=== PATIENT | female | born 1950 | race Caucasian/White ===

== ENCOUNTER → 2019-03-18 | Outpatient (CLI) | payer MEDICARE, MEDICAID ==
[~2019-03-18] MED LIST: ARIP20TA5 PO; ASPI-515 PO; BACL-19 PO; DIAZ5TAB PO; DOCU-131 PO; DULO60CA7 PO; FAMO-79 PO; LEVO25TA2 PO; OXYB5TAB7 PO; QUET400T4 PO; SIMV20TA3 PO; SOLI10TA2 PO; TOPI50TA35 PO; TRAM-47 PO; TRAZ-137 PO; TROL85CR3 TP
== END | disposition home or self-care (01) ==
LOC: CFH 13:34
PROVIDERS: ATTEND Family Medicine
DX: M81.0 Age-related osteoporosis without current pathological fracture (principal); N64.4 Mastodynia
CPT/HCPCS: 76642; 77066; 77080; G0279

== ENCOUNTER → 2020-06-22 | Outpatient (CLI) | payer MEDICARE, MEDICAID ==
[~2020-06-22] MED LIST changes: +OXYB5TAB10 PO; -OXYB5TAB7 PO; +SIMV20TA19 PO; -SIMV20TA3 PO; -TRAZ-137 PO; +TRAZ-175 PO
== END | disposition home or self-care (01) ==
LOC: CFH 12:00
PROVIDERS: ATTEND Family Medicine
DX: M79.89 Other specified soft tissue disorders (principal)

== ENCOUNTER 2021-01-05 12:13 | Outpatient (CLI) | payer MEDICAID, MEDICARE ==
[~2021-01-05 12:13] MED LIST changes: -ASPI-515 PO; +ASPI-963 PO
== END 2021-01-05 23:59 | disposition home or self-care (01) ==
LOC: RAD 12:13
PROVIDERS: ATTEND Family Medicine
DX: S69.92XA Unspecified injury of left wrist, hand and finger(s), initial encounter (principal); M19.042 Primary osteoarthritis, left hand; M25.742 Osteophyte, left hand; X58.XXXA Exposure to other specified factors, initial encounter; Y93.89 Activity, other specified; Y92.89 Other specified places as the place of occurrence of the external cause; Y99.8 Other external cause status

== ENCOUNTER 2021-04-05 19:35 | Emergency (ER) | payer MEDICARE, MEDICAID ==
[~2021-04-05] VITALS: Ht 157.5 cm; Wt 80.7 kg
[2021-04-05] MEDS ORDERED: SODIUM CHLORIDE FLUSH 10ML SYR IVF ONE (20:00)
[2021-04-05 20:37] LABS: BASOPHILS % (AUTO) 1 % (0-1); EOSINOPHILS % (AUTO) 2 % (1-7); LYMPHOCYTES % (AUTO) 41 % (22-44); MEAN CORPUSCULAR HEMOGLOBIN 30.8 pg (27.0-34.8); MEAN CORPUSCULAR HGB CONC 34.1 g/dL (32.4-35.8); MEAN PLATELET VOLUME 7.3 fL (7.4-10.4); MONOCYTES % (AUTO) 6 % (2-9); NEUTROPHILS % (AUTO) 50 % (42-75); PLATELET COUNT 311 x10^3/uL (130-400); RED BLOOD COUNT 4.49 x10^6/uL (3.82-5.3); RED CELL DISTRIBUTION WIDTH 13.4 % (9.6-15.2)
[2021-04-05 20:50] LABS: ALANINE AMINOTRANSFERASE 31 U/L (12-78); ALBUMIN 3.8 g/dL (3.4-5.0); ANION GAP 5 mmol/L (5-15); CALCIUM 9.5 mg/dL (8.5-10.1); CHLORIDE 108 mmol/L (98-107); CREATININE 0.52 mg/dL (0.55-1.02)
[2021-04-05 20:54] LABS: ALKALINE PHOSPHATASE 87 U/L (45-117); BILIRUBIN,TOTAL 0.3 mg/dL (0.2-1.0); TOTAL PROTEIN 7.5 g/dL (6.4-8.2); TROPONIN I < 0.015 ng/mL (0.000-0.045)
[2021-04-05 23:55] VITALS: BP 153/66
[2021-04-06] MEDS ORDERED: ACETAMINOPHEN 500 MG TABLET PO ONE
[2021-04-06] MEDS ORDERED: KETOROLAC 30 MG/1 ML IM ONE
[2021-04-06 00:12] LABS: MICROSCOPIC AUTO
[2021-04-06] MEDS ORDERED: KETOROLAC 30 MG/1 ML ONE (00:16)
[2021-04-06] MEDS ORDERED: ACETAMINOPHEN 500 MG TABLET ONE (00:16)
--- NOTE | 2021-04-06 01:34 | NUR ---
Patient given discharge instructions and they have confirmed that they understand the instructions. Patient ambulatory with steady gait.
== END 2021-04-06 01:35 | disposition home or self-care (01) ==
LOC: ED 20:00
DX: R53.1 Weakness (principal); R53.83 Other fatigue; M79.10 Myalgia, unspecified site; J44.9 Chronic obstructive pulmonary disease, unspecified; G43.909 Migraine, unspecified, not intractable, without status migrainosus; Z86.73 Personal history of transient ischemic attack (TIA), and cerebral infarction without residual deficits; Z90.710 Acquired absence of both cervix and uterus
CPT/HCPCS: 36415; 71045; 80053; 81001; 83880; 84484; 85025; 87086; 93005; 96372; 99285; J1885

== ENCOUNTER → 2021-05-22 | Outpatient (CLI) | payer MEDICARE, MEDICAID | END | disposition home or self-care (01) | LOC: CFH 10:16 | PROVIDERS: ATTEND Family Medicine | DX: N64.4 Mastodynia (principal) | CPT/HCPCS: 76642; 77062; 77066; G0279 ==

== ENCOUNTER 2021-06-21 15:08 | Emergency (ER) | payer MEDICARE, MEDICAID ==
[~2021-06-21] VITALS: Ht 157.5 cm; Wt 78.1 kg
--- NOTE | 2021-06-21 15:40 | NUR ---
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
--- NOTE | 2021-06-21 15:59 | NUR ---
ASSUMED CARE OF PATIENT. PATIENT C/O VAGINAL PAINFUL RED BUMPS. VS STABLE. NO ACUTE DISTRESS NOTED. CALL LIGHT IN PLACE. WILL CONTINUE TO MONITOR.
--- NOTE | 2021-06-21 16:20 | NUR ---
PT HAS BEEN SEEN BY DR KAMINSKI
[2021-06-21] MEDS ORDERED: CEPHALEXIN 500 MG CAPSULE ONE (16:28)
[2021-06-21] MEDS ORDERED: HYDROcodone/APAP 5/325 TABLET ONE (16:28)
[2021-06-21] MEDS ORDERED: HYDROcodone/APAP 5/325 TABLET PO ONE (16:30)
[2021-06-21] MEDS ORDERED: CEPHALEXIN 500 MG CAPSULE PO ONE (16:30)
[2021-06-21 16:54] VITALS: BP 129/57
== END 2021-06-21 17:27 | disposition home or self-care (01) ==
LOC: ED 15:38
DX: L73.9 Follicular disorder, unspecified (principal); E11.9 Type 2 diabetes mellitus without complications; J44.9 Chronic obstructive pulmonary disease, unspecified; Z86.73 Personal history of transient ischemic attack (TIA), and cerebral infarction without residual deficits
CPT/HCPCS: 82962; 99283